=== PATIENT | female | born 1960 | race Caucasian/White ===

== ENCOUNTER 2019-10-30 18:40 | Emergency (ER) | payer BC, MEDICAID ==
[2019-10-30] MEDS ORDERED: Diazepam 5 MG Tab PO ONE (19:37)
--- NOTE | 2019-10-30 19:37 | EDM.PDOC ---
ED HPI GENERAL MEDICAL PROBLEM - General Chief Complaint: Neck Problem Stated Complaint: MUSCLE SPASMS Time Seen by Provider: 10/30/19 19:27 - History of Present Illness INITIAL COMMENTS - FREE TEXT/NARRATIVE: 58-year-old female presents the emergency room with neck spasm. Patient rates recently had a C4-5 and C5-6 fusion and discectomy. She is developing some worsening spasms she is taking to muscle relaxants as it is. She called the on- call surgeon Dr. Ocasio who recommended that she start Valium but they cannot phone it in until the morning. She last took her Flexeril around 1:00 this afternoon. No recent history of neck trauma or injury. Neck Pain Score (Numeric/FACES): 9 - Related Data Allergies Allergy/AdvReac Type Severity Reaction Status Date / Time cephalexin [From Keflex] Allergy Hives Verified 10/30/19 18:48 clarithromycin [From Biaxin] Allergy Itching Verified 10/30/19 18:48 codeine Allergy Nausea Verified 10/30/19 18:48 lisinopril Allergy Leg Cramps Verified 10/30/19 18:48 Penicillins Allergy Hives Verified 10/30/19 18:48 Past Medical History Cardiovascular History: Reports: High Cholesterol, Hypertension Musculoskeletal History: Reports: Fibromyalgia, Neck Pain, Chronic, Other (See Below) Other Musculoskeletal History: neck surgery on 2018 Psychiatric History: Reports: Anxiety, Depression Social & Family History - Tobacco Use Smoking Status *Q: Former Smoker Used Tobacco, but Quit: Yes Month/Year Tobacco Last Used: 2018 - Recreational Drug Use Recreational Drug Use: No ED ROS GENERAL - Review of Systems Review Of Systems: See Below Constitutional: Reports: No Symptoms HEENT: Reports: No Symptoms Respiratory: Reports: No Symptoms Cardiovascular: Reports: No Symptoms Endocrine: Reports: No Symptoms GI/Abdominal: Reports: No Symptoms : Reports: No Symptoms Musculoskeletal: Reports: Neck Pain Skin: Reports: No Symptoms Neurological: Reports: No Symptoms ED EXAM, UPPER BACK/NECK PAIN - Physical Exam Exam: See Below Exam Limited By: No Limitations General Appearance: Alert, No Apparent Distress Head Exam: Atraumatic, Normocephalic Neck Exam: Full Range of Motion, Normal Alignment, Other (Postop changes noted clean dressings in place. She has some spasm especially in the right side of the neck.) Cardiovascular/Respiratory: No M/R/G, No Respiratory Distress Back Exam: Normal Inspection. No: CVA Tenderness (L), CVA Tenderness (R) Extremities: Normal Inspection, Normal Range of Motion, Non-Tender Neurologic: Other (Logically she is doing better after the surgery her carpal tunnel like symptoms are gone she still has some pain seems to be neurologic in her left upper arm but by enlarge is doing much better) Course - Vital Signs Last Recorded V/S: Last Vital Signs Temp 36.2 C 10/30/19 18:48 Pulse 84 10/30/19 18:48 Resp BP 155/100 H 10/30/19 18:48 Pulse Ox 100 10/30/19 18:48 - Re-Assessments/Exams Free Text/Narrative Re-Assessment/Exam: 10/30/19 19:50 Her neurosurgeons will phone her in some Valium tomorrow I will give her 10 mg now and have her continue to hold her muscle relaxants and give her 10 mg dose to take in the morning we will watch her for about an hour after getting her first dose here. Currently in cyclobenzaprine and methocarbamol last taken 1: 00 this afternoon she will not take anymore until instructed to do so Departure - Departure Time of Disposition: 19:55 Disposition: Home, Self-Care 01 Clinical Impression: Cervical paraspinal muscle spasm - Discharge Information Referrals: Dalila Mendoza PA-C [Primary Care Provider] - Additional Instructions: Return to the emergency room with any questions problems or worsening symptoms. Tomorrow have your neurosurgeon phone in the Valium. Sepsis Event Note - Evaluation Sepsis Screening Result: No Definite Risk - Focused Exam Vital Signs: Vital Signs Temp Pulse BP Pulse Ox 10/30/19 18:48 36.2 C 84 155/100 H 100 Date Exam was Performed: 10/30/19 Time Exam was Performed: 19:26
== END 2019-10-30 20:30 | disposition home or self-care (01) ==
LOC: JD.ED 18:40
DX: M62.838 Other muscle spasm (principal); I10 Essential (primary) hypertension; Z88.5 Allergy status to narcotic agent; Z88.0 Allergy status to penicillin; Z88.1 Allergy status to other antibiotic agents; Z87.891 Personal history of nicotine dependence
CPT/HCPCS: 99283; A9270; 99282

== ENCOUNTER → 2021-01-21 | Day surgery (SDC) | payer MEDICAID ==
[~2021-01-21] MED LIST: Lactated Ringers 1,000 ML IV SCH; Lidocaine 1% 30 ML SDV ONE; Lidocaine 1% 4 ML ONE; Lidocaine 1%/Sod Bicarbonate in NS 8.4% 1 ML Syringe IDERM PRN; Midazolam 1 MG/ML 2 ML SDV ONE; Propofol 200 MG/20 ML SDV ONE; Sodium Chloride 0.9% 10 ML Syringe FLUSH PRN; Triamcinolone Acetonide 40 MG/ML 1 ML SDV ONE; fentaNYL 100 MCG/2 ML SDV ONE
--- NOTE | 2021-01-21 06:41 | PCM.PREANE ---
Preanesthetic Assessment - Procedure Proposed Procedure: left carpal tunnel release - Anesthesia/Transfusion/Family Hx Anesthesia History: Prior Anesthesia Reaction (nausea) Family History of Anesthesia Reaction: No Transfusion History: No Prior Transfusion(s) - Review of Systems General: No Symptoms Pulmonary: No Symptoms Cardiovascular: No Symptoms Gastrointestinal: No Symptoms Neurological: Numbness (back of shoulders) Other: Reports: Neck Pain - Physical Assessment NPO Status Date: 01/20/21 NPO Status Time: 00:00 Height: 1.63 m Weight: 72 kg ASA Class: 3 Mental Status: Alert & Oriented x3 Airway Class: Mallampati = 1 Dentition: Reports: Dentures, Partial, [place](s) Thyro-Mental Finger Breadths: 3 Mouth Opening Finger Breadths: 3 ROM/Head Extension: Full Lungs: Clear to Auscultation, Normal Respiratory Effort Cardiovascular: Regular Rate, Regular Rhythm - Lab Values: Laboratory Last Values MRSA (PCR) Negative 01/12/21 14:27 - Allergies Allergies/Adverse Reactions: Allergies Allergy/AdvReac Type Severity Reaction Status Date / Time cephalexin [From Keflex] Allergy Hives Verified 01/20/21 09:00 clarithromycin [From Biaxin] Allergy Itching Verified 01/20/21 09:00 codeine Allergy Nausea Verified 01/20/21 09:00 lisinopril Allergy Leg Cramps Verified 01/20/21 09:00 Penicillins Allergy Hives Verified 01/20/21 09:00 - Blood Blood Available: No Product(s) Available: None - Anesthesia Plan Pre-Op Medication Ordered: Beta Jessica Beta Jessica: Metoprolol Med Last Dose Date: 01/21/21 Med Last Dose Time: 05:50 - Acknowledgements Anesthesia Type Planned: MAC Pt an Appropriate Candidate for the Planned Anesthesia: Yes Alternatives and Risks of Anesthesia Discussed w Pt/Guardian: Yes Pt/Guardian Understands and Agrees with Anesthesia Plan: Yes PreAnesthesia Questionnaire HEENT History: Reports: Impaired Vision, Other (See Below) Other HEENT History: wears glasses, has dentures Cardiovascular History: Reports: High Cholesterol, Hypertension Respiratory History: Reports: None Gastrointestinal History: Reports: Diverticulosis, Gastritis, GERD, Other (See Below) Other Gastrointestinal History: duodenitis Genitourinary History: Reports: None 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 Musculoskeletal History: Reports: Back Pain, Chronic, Fibromyalgia, Neck Pain, Chronic, Other (See Below) Other Musculoskeletal History: shoulder impingement, supraspinatus tendinitis, pes anseriunus bursitis to knees, trochanteric hip bursitis, polyarthralgia, IT band syndrome, SI joint pain, myofascial pain Neurological History: Reports: None Psychiatric History: Reports: Anxiety, Depression, Other (See Below) Other Psychiatric History: fatigue, insomnia Endocrine/Metabolic History: Reports: None Hematologic History: Reports: None Immunologic History: Reports: None Oncologic (Cancer) History: Reports: None Dermatologic History: Reports: Other (See Below) Other Dermatologic History: abdominal wall lipoma with excision - Infectious Disease History Infectious Disease History: Reports: None - Past Surgical History Head Surgeries/Procedures: Reports: None HEENT Surgical History: Reports: Cataract Surgery, Oral Surgery, Tonsillectomy Cardiovascular Surgical History: Reports: None Respiratory Surgical History: Reports: None GI Surgical History: Reports: Colonoscopy, EGD, Other (See Below) Other GI Surgeries/Procedures: pyloroplasty Female Surgical History: Reports: Breast Biopsy, Tubal Ligation Male Surgical History: Reports: None Endocrine Surgical History: Reports: None Neurological Surgical History: Reports: Other (See Below) Other Neurological Surgeries/Procedures: cervical discectomy and fusion Musculoskeletal Surgical History: Reports: None Oncologic Surgical History: Reports: None Dermatological Surgical History: Reports: None - SUBSTANCE USE Tobacco Use Status *Q: Current Every Day Tobacco User Recreational Drug Use History: No - HOME MEDS Home Medications: Home Meds Cyclobenzaprine [Flexeril] 10 mg PO TID PRN 01/20/21 [History] Diclofenac Sodium [Voltaren 1% Gel] 1 dose TOP QID PRN 01/20/21 [History] Ipratropium [Atrovent 0.03% Nasal [place]] 1 dose NASBOTH TID PRN 01/20/21 [History] Methylphenidate HCl [Ritalin] 10 mg PO BID PRN 01/20/21 [History] Metoprolol Succinate 50 mg PO DAILY 01/20/21 [History] Omeprazole 40 mg PO DAILY 01/20/21 [History] Rosuvastatin [Crestor] 10 mg PO DAILY 01/20/21 [History] Sertraline HCl [Zoloft] 200 mg PO DAILY 01/20/21 [History] Zolpidem Tartrate [Ambien Cr] 6.25 mg PO BEDTIME 01/20/21 [History] traMADol [Ultram] 50 - 100 mg PO Q8HR PRN 01/20/21 [History] valACYclovir [Valtrex] 1,000 mg PO BID PRN 01/20/21 [History] Acetaminophen/HYDROcodone [[place] 325-5 MG] 1 - 2 tab PO Q6H PRN #10 tablet 01/21/21 [Rx] - CURRENT (IN HOUSE) MEDS Current Meds: Current Medications Lactated Ringer's (Ringers, Lactated) 1,000 mls @ 125 mls/hr IV ASDIRECTED ROHAN Stop: 01/21/21 23:00 Last Admin: 01/21/21 06:30 Dose: 125 mls/hr Documented by: Lidocaine/Sodium Bicarbonate (Lidocaine 1%/Sod Bicarbonate In Ns 8.4% 1 Ml Syringe) 0.25 ml IDERM ONETIME PRN PRN Reason: Prior to IV Start Stop: 01/21/21 23:00 Last Admin: 01/21/21 06:35 Dose: 0.25 ml Documented by: Sodium Chloride (Sodium Chloride 0.9% 10 Ml Syringe) 10 ml FLUSH ASDIRECTED PRN PRN Reason: Keep Vein Open Stop: 01/21/21 23:00
[2021-01-21] MEDS: Bupivacaine 0.25% 10 ML SDV ONE ×2 (07:14→07:21)
--- NOTE | 2021-01-21 07:36 | PCM48HPAN ---
Post Anesthesia Note - EVALUATION WITHIN 48HRS OF ANESTHETIC Vital Signs in Normal Range: Yes Patient Participated in Evaluation: Yes Respiratory Function Stable: Yes Airway Patent: Yes Cardiovascular Function Stable: Yes Hydration Status Stable: Yes Pain Control Satisfactory: Yes Nausea and Vomiting Control Satisfactory: Yes Mental Status Recovered: Yes Vital Signs: Last Vital Signs Temp 36.3 C 01/21/21 06:38 Pulse 68 01/21/21 06:38 Resp 68 H 01/21/21 06:38 BP 110/77 01/21/21 06:38 Pulse Ox 95 01/21/21 06:38 - COMMENTS/OBSERVATIONS Free Text/Narrative:: no anesthesia complications noted
--- NOTE | 2021-01-21 07:38 | PCM.OPNOTE ---
- General Post-Op/Procedure Note Date of Surgery/Procedure: 01/21/21 Operative Procedure(s): left carpal tunnel release with right carpal tunnel injection Pre Op Diagnosis: bilateral median nerve compression neuropathy Post-Op Diagnosis: Same Anesthesia Technique: Local, MAC Primary Surgeon: Cmapbell Bauer Anesthesia Provider: Rodrigo Barnett Hse Advisor: Shoshana Garcia EBL in mLs: 0 Complications: None Condition: Good
--- NOTE | 2021-01-21 08:04 | OR ---
DATE OF OPERATION: 01/21/2021 SURGEON: Campbell Bauer MD OPERATION PERFORMED: Left carpal tunnel release with right carpal tunnel injection. PREOPERATIVE DIAGNOSIS: Bilateral median nerve compression neuropathy. POSTOPERATIVE DIAGNOSIS: Bilateral median nerve compression neuropathy. ANESTHESIA: Local MAC. ANESTHESIA PROVIDER: Rodrigo Barnett CRNA. SPRING ENCASER: Shoshana Garcia PA-C. ESTIMATED BLOOD LOSS: 0 mL. COMPLICATIONS: None. CONDITION: Stable. DESCRIPTION OF PROCEDURE: The patient was identified in the preop holding area. Proper site was marked and identified by the surgeon. The patient was taken back to the operating theater where after adequate anesthesia, the patient's left upper extremity was sterilely prepped and draped in the usual sterile fashion. OR time-out was performed. The patient did not receive antibiotics and it is not indicated for soft tissue hand procedure. At this time, the left upper extremity was exsanguinated and an Esmarch was used as a tourniquet on the forearm. At this time, using 1% lidocaine without epinephrine and 0.25% Marcaine without epinephrine, the palmar cutaneous branch of the median nerve was anesthetized and then the incisional site was anesthetized using Hewitt cardinal line and ulnar border of the fourth digit as reference. Once this had set up, an incision was made. Blunt dissection was taken down to the palmar cutaneous fascia. Palmar cutaneous fascia was incised with a [place] blade. At this time, the transverse carpal ligament was identified. A small rent was made in the transverse carpal ligament with a [place] blade under direct visualization. Resection of the transverse carpal ligament was done distally using tenotomy scissors making sure to stop short of the palmar arch. At this time, attention was turned proximally after it was found to be adequately released. Using the tenotomy scissors keeping the tips ulnar to protect the palmar cutaneous branch of the median nerve, the superficial forearm fascia as well as the transverse carpal ligament were resected proximally. It was found to be adequate release both proximally and distally. At this time, adequate saline was irrigated through the wound. 4-0 nylon sutures were used closure of the skin. The patient was placed in a sterile soft dressing. After this was completed, under sterile technique, 1 mL 40 mg Kenalog and 2 mL of 0.25% Marcaine were injected to the right carpal tunnel. The patient tolerated all procedures well. Sent to PACU in stable condition. MMBIRD /[id number]
== END | disposition home or self-care (01) ==
LOC: JD.SDS 06:21
PROVIDERS: ATTEND Orthopaedic Surgery
DX: G56.13 Other lesions of median nerve, bilateral upper limbs (principal); I10 Essential (primary) hypertension; K21.9 Gastro-esophageal reflux disease without esophagitis; G89.29 Other chronic pain; F17.210 Nicotine dependence, cigarettes, uncomplicated; E78.00 Pure hypercholesterolemia, unspecified; Z88.0 Allergy status to penicillin; Z88.5 Allergy status to narcotic agent; Z88.8 Allergy status to other drugs, medicaments and biological substances; Z79.899 Other long term (current) drug therapy; Z98.890 Other specified postprocedural states
CPT/HCPCS: 20605; 64721; 87641; J2250; J2704; J3010; J3301; J3490; J7120; 01810

== ENCOUNTER 2021-02-18 06:00 | Day surgery (SDC) | payer MEDICAID ==
[~2021-02-18 06:00] MED LIST changes: -Lidocaine 1% 30 ML SDV ONE; -Lidocaine 1% 4 ML ONE; -Midazolam 1 MG/ML 2 ML SDV ONE; -Propofol 200 MG/20 ML SDV ONE; +Scopolamine 1.5 MG Transdermal Patch TRDERM PRN; -Sodium Chloride 0.9% 10 ML Syringe FLUSH PRN; -Triamcinolone Acetonide 40 MG/ML 1 ML SDV ONE; -fentaNYL 100 MCG/2 ML SDV ONE
[2021-02-18] MEDS ORDERED: Sodium Chloride 0.9% 10 ML Syringe FLUSH PRN (06:11)
--- NOTE | 2021-02-18 06:40 | PCM.PREANE ---
Preanesthetic Assessment - Procedure Proposed Procedure: Right CTR - Anesthesia/Transfusion/Family Hx Anesthesia History: Prior Anesthesia Reaction (nausea) Family History of Anesthesia Reaction: No Transfusion History: No Prior Transfusion(s) - Review of Systems General: No Symptoms Pulmonary: No Symptoms Cardiovascular: No Symptoms Gastrointestinal: No Symptoms Neurological: No Symptoms Other: Reports: Neck Pain - Physical Assessment NPO Status Date: 02/17/21 NPO Status Time: 00:00 Height: 1.63 m Weight: 73.255 kg ASA Class: 3 Mental Status: Alert & Oriented x3 Dentition: Reports: Dentures, Partial, Broken Tooth/Teeth (front bottom) Thyro-Mental Finger Breadths: 3 Mouth Opening Finger Breadths: 3 ROM/Head Extension: Limited/Partial Lungs: Clear to Auscultation, Normal Respiratory Effort Cardiovascular: Regular Rate, Regular Rhythm - Allergies Allergies/Adverse Reactions: Allergies Allergy/AdvReac Type Severity Reaction Status Date / Time cephalexin [From Keflex] Allergy Hives Verified 02/17/21 11:52 clarithromycin [From Biaxin] Allergy Itching Verified 02/17/21 11:52 codeine Allergy Nausea Verified 02/17/21 11:52 lisinopril Allergy Leg Cramps Verified 02/17/21 11:52 Penicillins Allergy Hives Verified 02/17/21 11:52 - Blood Blood Available: No Product(s) Available: None - Anesthesia Plan Pre-Op Medication Ordered: Beta Jessica Beta Jessica: Metoprolol Med Last Dose Date: 02/18/21 Med Last Dose Time: 05:40 - Acknowledgements Anesthesia Type Planned: MAC Pt an Appropriate Candidate for the Planned Anesthesia: Yes Alternatives and Risks of Anesthesia Discussed w Pt/Guardian: Yes Pt/Guardian Understands and Agrees with Anesthesia Plan: Yes PreAnesthesia Questionnaire HEENT History: Reports: Impaired Vision, Other (See Below) Other HEENT History: wears glasses, has dentures Cardiovascular History: Reports: High Cholesterol, Hypertension Respiratory History: Reports: None Gastrointestinal History: Reports: Diverticulosis, Gastritis, GERD, Other (See Below) Other Gastrointestinal History: duodenitis Genitourinary History: Reports: None 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 Musculoskeletal History: Reports: Back Pain, Chronic, Fibromyalgia, Neck Pain, Chronic, Other (See Below) Other Musculoskeletal History: shoulder impingement, supraspinatus tendinitis, pes anseriunus bursitis to knees, trochanteric hip bursitis, polyarthralgia, IT band syndrome, SI joint pain, myofascial pain Neurological History: Reports: None Psychiatric History: Reports: Anxiety, Depression, Other (See Below) Other Psychiatric History: fatigue, insomnia Endocrine/Metabolic History: Reports: None Hematologic History: Reports: None Immunologic History: Reports: None Oncologic (Cancer) History: Reports: None Dermatologic History: Reports: Other (See Below) Other Dermatologic History: abdominal wall lipoma with excision - Infectious Disease History Infectious Disease History: Reports: None - Past Surgical History Head Surgeries/Procedures: Reports: None HEENT Surgical History: Reports: Cataract Surgery, Oral Surgery, Tonsillectomy Cardiovascular Surgical History: Reports: None Respiratory Surgical History: Reports: None GI Surgical History: Reports: Colonoscopy, EGD, Other (See Below) Other GI Surgeries/Procedures: pyloroplasty Female Surgical History: Reports: Breast Biopsy, Tubal Ligation Male Surgical History: Reports: None Endocrine Surgical History: Reports: None Neurological Surgical History: Reports: Other (See Below) Other Neurological Surgeries/Procedures: cervical discectomy and fusion Musculoskeletal Surgical History: Reports: Carpal Tunnel Oncologic Surgical History: Reports: None Dermatological Surgical History: Reports: None - SUBSTANCE USE Tobacco Use Status *Q: Current Every Day Tobacco User Tobacco Use Within Last Twelve Months: Cigarettes Days Per Week of Alcohol Use: 2 Number of Drinks Per Day: 1 Total Drinks Per Week: 2 Recreational Drug Use History: No - HOME MEDS Home Medications: Home Meds Cyclobenzaprine [Flexeril] 10 mg PO TID PRN 01/20/21 [History] Diclofenac Sodium [Voltaren 1% Gel] 1 dose TOP QID PRN 01/20/21 [History] Ipratropium [Atrovent 0.03% Nasal [place]] 1 dose NASBOTH TID PRN 01/20/21 [History] Methylphenidate HCl [Ritalin] 10 mg PO BID PRN 01/20/21 [History] Metoprolol Succinate 50 mg PO DAILY 01/20/21 [History] Omeprazole 40 mg PO DAILY 01/20/21 [History] Rosuvastatin [Crestor] 10 mg PO DAILY 01/20/21 [History] Sertraline HCl [Zoloft] 200 mg PO DAILY 01/20/21 [History] Zolpidem Tartrate [Ambien Cr] 6.25 mg PO BEDTIME 01/20/21 [History] traMADol [Ultram] 50 - 100 mg PO Q8HR PRN 01/20/21 [History] valACYclovir [Valtrex] 1,000 mg PO BID PRN 01/20/21 [History] Acetaminophen/oxyCODONE [Percocet 325-5 MG] 1 tab PO Q6H PRN 02/17/21 [History] Lubiprostone [Amitiza] 24 mcg PO BID 02/17/21 [History] Melatonin 1 mg PO DAILY 02/17/21 [History] Nabumetone [Relafen] 500 mg PO BID 02/17/21 [History] - CURRENT (IN HOUSE) MEDS Current Meds: Current Medications Lactated Ringer's (Ringers, Lactated) 1,000 mls @ 125 mls/hr IV ASDIRECTED ROHAN Last Admin: 02/18/21 06:08 Dose: 125 mls/hr Documented by: Lidocaine/Sodium Bicarbonate (Lidocaine 1%/Sod Bicarbonate In Ns 8.4% 1 Ml Syringe) 0.25 ml IDERM ONETIME PRN PRN Reason: Prior to IV Start Scopolamine (Scopolamine 1.5 Mg Transdermal Patch) 1.5 mg TRDERM Q72H PRN PRN Reason: history of PONV Last Admin: 02/18/21 06:18 Dose: 1.5 mg Documented by: Sodium Chloride (Sodium Chloride 0.9% 10 Ml Syringe) 10 ml FLUSH ASDIRECTED PRN PRN Reason: Keep Vein Open
[2021-02-18] MEDS ORDERED: fentaNYL 100 MCG/2 ML SDV ONE (06:49)
[2021-02-18] MEDS ORDERED: Ondansetron 4 MG/2 ML SDV ONE (06:49)
[2021-02-18] MEDS ORDERED: Propofol 200 MG/20 ML SDV ONE (06:50)
[2021-02-18] MEDS ORDERED: Lidocaine 1% 4 ML ONE (06:50)
[2021-02-18] MEDS ORDERED: Midazolam 1 MG/ML 2 ML SDV ONE (06:50)
--- NOTE | 2021-02-18 07:33 | PCM48HPAN ---
Post Anesthesia Note - EVALUATION WITHIN 48HRS OF ANESTHETIC Vital Signs in Normal Range: Yes Patient Participated in Evaluation: Yes Respiratory Function Stable: Yes Airway Patent: Yes Cardiovascular Function Stable: Yes Hydration Status Stable: Yes Pain Control Satisfactory: Yes Nausea and Vomiting Control Satisfactory: Yes Mental Status Recovered: Yes Vital Signs: Last Vital Signs Temp 36.6 C 02/18/21 05:50 Pulse 66 02/18/21 05:50 Resp 18 02/18/21 05:50 BP 123/93 H 02/18/21 05:50 Pulse Ox 98 02/18/21 05:50 - COMMENTS/OBSERVATIONS Free Text/Narrative:: no anesthesia complications noted
[2021-02-18] MEDS ORDERED: Bupivacaine 0.25% 10 ML SDV ONE (08:24)
[2021-02-18] MEDS ORDERED: Lidocaine 1% 30 ML SDV ONE (08:24)
--- NOTE | 2021-02-24 14:30 | PCM.OPNOTE ---
- General Post-Op/Procedure Note Date of Surgery/Procedure: 02/18/21 Operative Procedure(s): right carpal tunnel release Pre Op Diagnosis: right median nerve compression neuropathy Post-Op Diagnosis: Same Anesthesia Technique: Local, MAC Primary Surgeon: Campbell Bauer Anesthesia Provider: Rodrigo Barnett Patient Relations Specialist: Shoshana Garcia EBL in mLs: 5 Complications: None Condition: Good
--- NOTE | 2021-02-24 14:49 | OR ---
DATE OF OPERATION: 02/18/2021 SURGEON: Campbell Bauer MD OPERATION PERFORMED: Right carpal tunnel release. PREOPERATIVE DIAGNOSIS: Right median nerve compression neuropathy. POSTOPERATIVE DIAGNOSIS: Right median nerve compression neuropathy. ANESTHESIA: Local MAC. ANESTHESIA PROVIDER: Chema Partida. WASTEWATER TREATMENT PLANT OPERATOR: Shoshana Garcia PA-C ESTIMATED BLOOD LOSS: Less than 5 mL. COMPLICATIONS: None. CONDITION: Stable. DESCRIPTION OF PROCEDURE: The patient was identified in the preop holding area. Proper site was marked and identified by the surgeon. The patient was taken back to the operating theater where after adequate anesthesia, the patient's right upper extremity was sterilely prepped and draped in the usual sterile fashion. OR time-out was performed. The patient did not receive antibiotics and it is not indicated for soft tissue hand procedure. At this time, the right upper extremity was exsanguinated and an [place] was used as a tourniquet on the forearm. At this time, using 1% lidocaine without epinephrine and 0.25% Marcaine without epinephrine, the palmar cutaneous branch of the median nerve was anesthetized and then the incisional site was anesthetized using [place] cardinal line and ulnar border of the fourth digit as reference. Once this had set up, an incision was made. Blunt dissection was taken down to the palmar cutaneous fascia. Palmar cutaneous fascia was incised with a [place] blade. At this time, the transverse carpal ligament was identified. A small rent was made in the transverse carpal ligament with a [place] blade under direct visualization. Resection of the transverse carpal ligament was done distally using tenotomy scissors making sure to stop short of the palmar arch. At this time, attention was turned proximally after it was found to be adequately released. Using the tenotomy scissors keeping the tips ulnar to protect the palmar cutaneous branch of the median nerve, the superficial forearm fascia as well as the transverse carpal ligament were resected proximally. It was found to be adequate release both proximally and distally. At this time, adequate saline was irrigated through the wound. 4-0 nylon sutures were used closure of the skin. The patient was placed in a sterile soft dressing and sent to PACU in stable condition. MMODAL /[id number]
== END 2021-02-18 08:33 | disposition home or self-care (01) ==
LOC: JD.SDS 06:00
PROVIDERS: ATTEND Orthopaedic Surgery
DX: G56.01 Carpal tunnel syndrome, right upper limb (principal); G89.29 Other chronic pain; E78.00 Pure hypercholesterolemia, unspecified; I10 Essential (primary) hypertension; F17.210 Nicotine dependence, cigarettes, uncomplicated; Z88.0 Allergy status to penicillin; Z88.8 Allergy status to other drugs, medicaments and biological substances; Z88.6 Allergy status to analgesic agent; Z79.899 Other long term (current) drug therapy
CPT/HCPCS: 64721; A9270; J2250; J2405; J2704; J3010; J3490; J7120; 01810

== ENCOUNTER 2021-08-21 16:11 | Emergency (ER) | payer MEDICAID ==
[2021-08-21] MEDS ORDERED: Promethazine 25 MG in Sodium Chloride 0.9% 50 ML IV ONE (16:37)
[2021-08-21] MEDS ORDERED: HYDROmorphone 1 MG/ML Syringe IM ONE (16:37)
--- NOTE | 2021-08-21 16:42 | EDM.PDOC ---
ED HPI GENERAL MEDICAL PROBLEM - General Chief Complaint: Back Pain or Injury Stated Complaint: BACK PAIN Time Seen by Provider: 08/21/21 16:36 Source of Information: Reports: Patient History Limitations: Reports: No Limitations - History of Present Illness INITIAL COMMENTS - FREE TEXT/NARRATIVE: 60-year-old female presents to the ED with rather acute onset of left upper thoracic back pain. No known injuries. Patient has chronic pain syndrome from fibromyalgia syndrome as well as osteoarthritic changes in her neck and lower back. She has a previous failed cervical spine fusion procedure and is scheduled in the near future for repeat cervical spine fusion procedure. Pain in her left upper back is made slightly worse by deep breathing. She described as a constant hot sharp burning discomfort with no position being comfortable. Patient also gets facet joint injections with corticosteroids by Dr. Artis-- pain management physician in [place]. She is on a good deal of muscle relaxants and on Percocet 10/325 mg tablets which she takes 1 tablet three times daily. Recently discontinued tramadol and has been replaced with Percocet tablets. Onset: Today, Sudden Onset Date: 08/21/21 Onset Time: 13:30 Duration: Hour(s):, Constant Location: Reports: Back (Left upper back pain adjacent to her shoulder blade pain radiates slightly through the anterior chest and is made slightly worse by deep breathing.) Quality: Reports: Ache, Burning, Other (Sharp and stabbing at times no position is comfortable) Severity: Moderate (710) Improves with: Reports: None Worsens with: Reports: Other (Deep breathing and certain movements of her upper extremity on the left side) Context: Denies: Activity, Exercise, Lifting, Sick Contact, Trauma, Other Associated Symptoms: Reports: Cough (Mild). 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 (see below) (Patient is on multiple medications including Percocet 10/325 mg tablets every 8 hours for pain relief.) Left Shoulder Pain Score (Numeric/FACES): 5 - Related Data Allergies Allergy/AdvReac Type Severity Reaction Status Date / Time cephalexin [From Keflex] Allergy Hives Verified 08/21/21 16:21 clarithromycin [From Biaxin] Allergy Itching Verified 08/21/21 16:21 Penicillins Allergy Hives Verified 08/21/21 16:21 codeine AdvReac Nausea Verified 08/21/21 16:21 lisinopril AdvReac Leg Cramps Verified 08/21/21 16:21 Home Meds: Home Meds Cyclobenzaprine [Flexeril] 10 mg PO TID PRN 01/20/21 [History] Diclofenac Sodium [Voltaren 1% Gel] 1 dose TOP QID PRN 01/20/21 [History] Ipratropium [Atrovent 0.03% Nasal [place]] 1 dose NASBOTH TID PRN 01/20/21 [History] Methylphenidate HCl [Ritalin] 10 mg PO BID PRN 01/20/21 [History] Metoprolol Succinate 50 mg PO DAILY 01/20/21 [History] Omeprazole 40 mg PO DAILY 01/20/21 [History] Rosuvastatin [Crestor] 10 mg PO DAILY 01/20/21 [History] Sertraline HCl [Zoloft] 200 mg PO DAILY 01/20/21 [History] Zolpidem Tartrate [Ambien Cr] 6.25 mg PO BEDTIME 01/20/21 [History] valACYclovir [Valtrex] 1,000 mg PO BID PRN 01/20/21 [History] Melatonin 1 mg PO DAILY 02/17/21 [History] Nabumetone [Relafen] 500 mg PO BID 02/17/21 [History] LORazepam [Ativan] 0.5 mg PO BID PRN 08/21/21 [History] Nabumetone [Relafen] 500 mg PO BID 08/21/21 [History] Omeprazole 40 mg PO DAILY 08/21/21 [History] Promethazine [Phenergan] 25 mg PO Q6HR PRN 08/21/21 [History] Sertraline [Zoloft] 200 mg PO DAILY 08/21/21 [History] buPROPion HCL [Bupropion Xl] 150 mg PO DAILY 08/21/21 [History] hydrOXYzine pamoate [Vistaril] 75 mg PO Q6H 08/21/21 [History] oxyCODONE HCl/Acetaminophen [Percocet 10-325 mg Tablet] 1 tab PO Q8HR 08/21/21 [History] predniSONE [Prednisone] 20 mg PO ASDIRECTED #15 tablet 08/21/21 [Rx] Past Medical History HEENT History: Reports: Impaired Vision, Other (See Below) Other HEENT History: wears glasses, has dentures Cardiovascular History: Reports: High Cholesterol, Hypertension Respiratory History: Reports: None Gastrointestinal History: Reports: Diverticulosis, Gastritis, GERD, Other (See Below) Other Gastrointestinal History: duodenitis Genitourinary History: Reports: None 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 Musculoskeletal History: Reports: Back Pain, Chronic, Fibromyalgia, Neck Pain, Chronic, Osteoarthritis, Other (See Below) Other Musculoskeletal History: shoulder impingement, supraspinatus tendinitis, pes anseriunus bursitis to knees, trochanteric hip bursitis, polyarthralgia, IT band syndrome, SI joint pain, myofascial pain Neurological History: Reports: None Psychiatric History: Reports: Anxiety, Depression, Other (See Below) Other Psychiatric History: fatigue, insomnia Endocrine/Metabolic History: Reports: None Hematologic History: Reports: None Immunologic History: Reports: None Oncologic (Cancer) History: Reports: None Dermatologic History: Reports: Other (See Below) Other Dermatologic History: abdominal wall lipoma with excision - Infectious Disease History Infectious Disease History: Reports: None - Past Surgical History Head Surgeries/Procedures: Reports: None HEENT Surgical History: Reports: Cataract Surgery, Oral Surgery, Tonsillectomy Cardiovascular Surgical History: Reports: None Respiratory Surgical History: Reports: None GI Surgical History: Reports: Colonoscopy, EGD, Other (See Below) Other GI Surgeries/Procedures: pyloroplasty Female Surgical History: Reports: Breast Biopsy, Tubal Ligation Endocrine Surgical History: Reports: None Neurological Surgical History: Reports: Other (See Below) Other Neurological Surgeries/Procedures: cervical discectomy and fusion Musculoskeletal Surgical History: Reports: Carpal Tunnel Oncologic Surgical History: Reports: None Dermatological Surgical History: Reports: None Social & Family History - Tobacco Use Tobacco Use Status *Q: Current Every Day Tobacco User Years of Tobacco use: 30 Packs/Tins Daily: 0.5 - Caffeine Use Caffeine Use: Reports: Coffee - Recreational Drug Use Recreational Drug Use: No - Living Situation & Occupation Living situation: Reports: Single Occupation: Employed [employer] - Review of Systems Review Of Systems: See Below Constitutional: Reports: Malaise, Weakness, Fatigue. Denies: Fever, Chills, Decreased Appetite, Weight Loss (Chronic) HEENT: Reports: Glasses Respiratory: Reports: Cough (Occasional cough occasional sputum production from smoking. She is trying to quit in preparation for upcoming cervical spine fusion surgery). Denies: Shortness of Breath, Wheezing, Pleuritic Chest Pain Cardiovascular: Reports: Blood Pressure Problem. Denies: Chest Pain, Claudication, Dyspnea on Exertion, Edema, Lightheadedness, Orthopnea, Palpitations Endocrine: Reports: Fatigue GI/Abdominal: Reports: Constipation : Reports: No Symptoms Musculoskeletal: Reports: Neck Pain (Chronic cervical neck pain with failed previous cervical spine fusion surgery.), Back Pain (Lumbar spine pain and is in need of L-spine fusion surgery as well.), Hand Pain (Has had bilateral carpal tunnel syndrome), Joint Pain ( knees hips shoulders) Skin: Reports: No Symptoms Neurological: Reports: Headache. Denies: Confusion, Dizziness, Numbness, Syncope, Tingling, Trouble Speaking, Difficulty Walking, Weakness Psychiatric: Reports: Depression Hematologic/Lymphatic: Reports: No Symptoms Immunologic: Reports: No Symptoms ED EXAM, UPPER BACK/NECK PAIN - Physical Exam Exam: See Below Exam Limited By: Other General Appearance: Alert (Temperature is 36.1 degrees. Heart rate 74 and sinus respiratory is 15 with O2 sats of 100% room air. BP 127/76), WD/WN, Mild Distress, Other Neck Exam: Stiff Neck, Tenderness, Tender Lateral, Other (She is wearing a firm cervical collar which she states she has been wearing continuously for the last 3 months as its helped relieve a lot of her pain in her neck and radiculopathy in her upper extremities.) Nexus Criteria: Posterior, Midline Cervical Tenderness Cardiovascular/Respiratory: Regular Rate, Rhythm, No M/R/G, Normal Peripheral Pulses, Normal Breath Sounds Back Exam: Other (Patient does have paraspinal muscle spasm left upper back with evidence of rib head subluxation clinically at T5 and T6 level which is her source of pain on palpation as well.) Extremities: Normal Inspection, Normal Range of Motion, Non-Tender, No Pedal Edema Neurologic: No Motor/Sensory Deficits, Alert, Oriented x 3 Psychiatric: Normal Affect, Normal Mood Skin Exam: Normal Color, Warm/Dry Course - Vital Signs Last Recorded V/S: Last Vital Signs Temp 36.1 C 08/21/21 16:20 Pulse 74 08/21/21 16:20 Resp 15 08/21/21 16:20 BP 127/76 08/21/21 16:20 Pulse Ox 100 08/21/21 16:20 - Orders/Labs/Meds Meds: Medications Discontinued Medications Generic Name Dose Route Start Last Admin Trade Name Luis PRN Reason Stop Dose Admin Hydromorphone HCl 1 mg 08/21/21 16:37 08/21/21 16:51 Hydromorphone 1 Mg/Ml Syringe IM 08/21/21 16:38 1 mg ONETIME ONE Administration Promethazine HCl 25 mg/ Sodium 51 mls @ 100 mls/hr 08/21/21 16:37 08/21/21 16:51 Chloride IV 08/21/21 17:07 100 mls/hr ONETIME ONE Administration - Radiology Interpretation Free Text/Narrative:: 60-year-old female presents to the ED with fairly acute onset of left upper back pain starting today around 1330 hrs. She can make it hurt by taking a deep breath. She describes it as a constant sharp burning hot poker sensation with no position being comfortable. No known trauma to this area. Patient is currently wearing a fairly hard cervical neck collar due to failed cervical spine fusion surgery and chronic neck pain. She finds this does give her quite a bit of relief of her back and upper extremity pain. On examination she has paraspinal muscle spasm left upper back adjacent to the scapula with rib head subluxation clinically at T5 and T6 level. Plan I am going to give her an IM injection of Dilaudid 1 mg with Phenergan 25 mg IM to relieve pain. She has Percocet 10/325 mg tablets at home which she has been taking one every 8 hours for pain. She will increase this to one every 4-6 hours for pain relief for the next few days. I placed her on prednisone 20 mg twice daily for 5 days with breakfast and supper and then 20 mg in the morning for another 5 days to hopefully reduce further inflammation. Advised follow-up with chiropractor early next week when able. Departure - Departure Time of Disposition: 17:00 Disposition: Home, Self-Care 01 Condition: Fair Clinical Impression: Chronic neck pain with history of cervical spinal surgery, Fibromyalgia syndrome Acute thoracic back pain Qualifiers: Back pain laterality: left Qualified Code(s): M54.6 - Pain in thoracic spine - Discharge Information *PRESCRIPTION DRUG MONITORING PROGRAM REVIEWED*: Not Applicable *COPY OF PRESCRIPTION DRUG MONITORING REPORT IN PATIENT SHARAN: Not Applicable Prescriptions: predniSONE [Prednisone] 20 mg PO ASDIRECTED #15 tablet Instructions: Myofascial Pain Syndrome and Fibromyalgia Referrals: Dalila Mendoza PA-C [Primary Care Provider] - Forms: ED Department Discharge Additional Instructions: Evaluation in the emergency room today in regards to fairly acute onset of left upper back pain with no known injuries. Chronic cervical neck pain with failed cervical spine fusion surgery in the past. On examination I found rib head subluxations at thoracic five and thoracic six levels in your left upper back which I believe are causing overlying muscle spasm and pain syndrome. You were given an intramuscular injection of Dilaudid 1 mg mixed with Phenergan 25 mg for acute pain relief. This will peak in about 45 to 60 minutes. You may well have to see the chiropractor early next week to have these rib heads placed back into position. Suggest use of prednisone 20 mg tablets twice daily with breakfast and supper for 5 days and then 1 tablet in the morning only for another 5 days. May take 1st tablet tonight with supper. Just increasing your Percocet tablets 10/325 mg strength one every 4-6 hours as needed for pain relief for a few days until this back pain can be remedied by chiropractor they take about 4 to 6 hours to start to work well. Continue all other medications as prescribed. Sepsis Event Note (ED) - Focused Exam Vital Signs: Vital Signs Temp Pulse Resp BP Pulse Ox 08/21/21 16:20 36.1 C 74 15 127/76 100
== END 2021-08-21 17:30 | disposition home or self-care (01) ==
LOC: JD.ED 16:11
DX: G89.29 Other chronic pain (principal); M54.6 Pain in thoracic spine; M54.2 Cervicalgia; M79.7 Fibromyalgia; E78.00 Pure hypercholesterolemia, unspecified; I10 Essential (primary) hypertension; K21.9 Gastro-esophageal reflux disease without esophagitis; Z88.1 Allergy status to other antibiotic agents; Z88.5 Allergy status to narcotic agent; Z88.8 Allergy status to other drugs, medicaments and biological substances; Z79.899 Other long term (current) drug therapy; Z72.0 Tobacco use
CPT/HCPCS: 96365; 96372; 99283; J1170; J2550